=== PATIENT | male | born 1955 | race Caucasian/White ===

== ENCOUNTER 2019-10-01 15:28 | Emergency (ER) | payer OTHER ==
[2019-10-01] MEDS ORDERED: KETOROLAC 30 MG/ML INJ ONE (16:46)
--- NOTE | 2019-10-01 16:57 | RAD REPORT ---
EXAM DESCRIPTION: RAD - Hand Right 3 View - 10/01/2019 4:48 pm CLINICAL HISTORY: Pain;Swelling COMPARISON: No comparisons FINDINGS: Mildly displaced fracture is seen involving the base of the fifth metacarpal. Moderate zaina rounding soft tissue swelling.
--- NOTE | 2019-10-01 17:02 | RAD REPORT ---
EXAM DESCRIPTION: RAD - Forearm Right - 10/01/2019 4:54 pm CLINICAL HISTORY: PAIN COMPARISON: No comparisons FINDINGS: Mildly displaced fracture is seen involving the base of the fifth metacarpal. No fracture or dislocation of the forearm bones seen.
--- NOTE | 2019-10-01 17:45 | RAD REPORT ---
EXAM DESCRIPTION: CT - CTHCSPWOC - 10/01/2019 5:27 pm CLINICAL HISTORY: Trauma, head and neck injury. PAIN COMPARISON: No comparisons TECHNIQUE: Axial 5 mm thick images of the head were obtained. Axial 2 mm thick images of the cervical spine were obtained with sagittal and coronal reconstruction images generated and reviewed. All CT scans are performed using dose optimization technique as appropriate and may include automated exposure control or mA/KV adjustment according to patient size. FINDINGS: CT HEAD WITHOUT CONTRAST: No acute hemorrhage, hydrocephalus or extra-axial collection is identified.No areas of brain edema or midline shift. The paranasal sinuses and mastoids are clear.The calvarium is intact. CT CERVICAL SPINE WITHOUT CONTRAST: No fracture or subluxation.Moderate lower cervical degenerative changes.No prevertebral soft tissues swelling is identified. IMPRESSION: No acute intracranial or cervical spine findings. Moderate lower cervical degenerative changes.
--- NOTE | 2019-10-01 17:50 | RAD REPORT ---
EXAM DESCRIPTION: CT - CTFB CLINICAL HISTORY: FACIAL PAIN COMPARISON: No comparisons TECHNIQUE: Axial 2 mm thick images of the face were obtained with sagittal and coronal reconstructio n images. All CT scans are performed using dose optimization technique as appropriate and may include automated exposure control or mA/KV adjustment according to patient size. FINDINGS: No acute facial bone fracture is seen.The mandible is intact. The globes and orbital contents are grossly unremarkable.Mild polypoid mucosal thickening involves th e maxillary antra. IMPRESSION: Negative for facial bone fracture.
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
== END 2019-10-01 19:24 | disposition home or self-care (01) ==
LOC: ER 15:28
PROC: 2W3CX1Z Immobilization of Right Lower Arm using Splint (ICD-10-PCS; principal; 2019-10-01)
DX: S62.316A Displaced fracture of base of fifth metacarpal bone, right hand, initial encounter for closed fracture (principal); S00.81XA Abrasion of other part of head, initial encounter; S00.93XA Contusion of unspecified part of head, initial encounter; W01.198A Fall on same level from slipping, tripping and stumbling with subsequent striking against other object, initial encounter; Y93.89 Activity, other specified; Y92.89 Other specified places as the place of occurrence of the external cause; I10 Essential (primary) hypertension
CPT/HCPCS: 70450; 70486; 72125; 76377; 96372; 99284